=== PATIENT | female | born 1940 | race Caucasian/White ===

== ENCOUNTER → 2017-07-22 18:00 | Outpatient (CLI) | payer MEDICARE, OTHER ==
[2012-10-10 07:52] VITALS: BMI 28.7
== END | disposition home or self-care (01) ==
LOC: D.MAMMO 10:00
DX: Z12.31 Encounter for screening mammogram for malignant neoplasm of breast (principal)

== ENCOUNTER → 2018-08-22 20:11 | Outpatient (CLI) | payer MEDICARE, OTHER ==
[2012-10-10 07:52] VITALS: BMI 28.7
== END | disposition home or self-care (01) ==
LOC: D.MAMMO 14:30
DX: Z12.31 Encounter for screening mammogram for malignant neoplasm of breast (principal)